=== PATIENT | male | born 1995 | race American Indian/Alaskan Native ===

== ENCOUNTER 2017-12-31 14:00 | Emergency (ER) | payer OTHER ==
[2017-12-31 14:11] VITALS: BMI 22.2
[2017-12-31 14:16] VITALS: RESP 18; TEMP 98.2
[2017-12-31] MEDS ORDERED: Morphine 4 mg/ml ISec IVP STA (14:31)
[2017-12-31] MEDS ORDERED: Sodium Chloride 0.9% 1,000 ML IV STA (14:47)
[2017-12-31] MEDS ORDERED: Iohexol 240 (50 ml) ONE (14:52)
--- NOTE | 2017-12-31 14:54 | ED PDOC ---
Arrival/HPI - General Chief Complaint: Abdominal Pain Time Seen by Provider: 12/31/17 14:21 Historian: Patient, Partner EM Caveat: Acuity of Condition - History of Present Illness Narrative History of Present Illness (Text): 12/31/17 14:48 Pt is a 22 yo AA M BIB girlfriend for acute epigastric abdominal pain x 6 hrs. Pt reports that he had over 14 spicy hot wings last night along with a slurpee and a small amount of wine before he went to bed. Pt states when he woke up today, he had severe abdominal pain along with nausea but denies cp, vomiting, diarrhea, shortness of breath, back pain or fever. Girlfriend gave him pepto bismol tablets but spit them out in attempting to vomit. Pt is currently taking percocet for unknown condition. Reports a similar type of pain when he was very young and was diagnosed with gastroesophagitis. Last BM was the previous day. 12/31/17 15:01 Time/Duration: Prior to Arrival Symptom Onset: Gradual Symptom Course: Unchanged, Worsening Quality: Aching Severity Level: Moderate, Severe Activities at Onset: Rest, Eating, Sleeping Context: Home Past Medical History - Provider Review Nursing Documentation Reviewed: Yes - Travel History Have you recently traveled outside [place] w/in the past 3 mons?: No - Past History Past History: No Previous - Infectious Disease Hx of Infectious Diseases: None - Tetanus Immunization Tetanus Immunization: Unknown - Past Medical History Past Medical History: No Previous - Cardiac Hx Cardiac Disorders: No - Pulmonary Hx Respiratory Disorders: No - Neurological Hx Neurological Disorder: No - Endocrine/Metabolic Hx Endocrine Disorders: No - Hematological/Oncological Hx Blood Disorders: No - Integumentary Hx Dermatological Disorder: No - Musculoskeletal/Rheumatological Hx Musculoskeletal Disorders: No - Gastrointestinal Hx Gastrointestinal Disorders: No - Psychiatric Hx Substance Use: Yes - Past Surgical History Past Surgical History: No Previous - Anesthesia Hx Anesthesia: No Family/Social History - Physician Review Nursing Documentation Reviewed: Yes Family/Social History: Unknown Family HX Smoking Status: Heavy Smoker > 10 Cigarettes Daily Hx Alcohol Use: No Hx Substance Use: Yes Substance used: percocet Hx Substance Use Treatment: No Allergies/Home Meds Allergies/Adverse Reactions: Allergies No Known Allergies Allergy (Verified 03/01/14 13:02) Review of Systems - Review of Systems Constitutional: Normal Eyes: Normal ENT: Normal Respiratory: Normal Cardiovascular: Normal Gastrointestinal: Abdominal Pain (10/10 intractable pain), Nausea, Appetite Changes, Other (ate over 14 spicy hot wings last night before bed) Genitourinary Male: Normal Musculoskeletal: Normal Skin: Normal Neurological: Normal Endocrine: Normal Hemo/Lymphatic: Normal Psychiatric: Normal Physical Exam Vital Signs Reviewed: Yes Vital Signs Temp Pulse Resp BP Pulse Ox 12/31/17 18:47 72 18 118/66 98 12/31/17 14:13 98.2 F 69 18 105/41 L 96 Temperature: Afebrile Blood Pressure: Normal Pulse: Regular Respiratory Rate: Normal Appearance: Positive for: Well-Appearing, Non-Toxic, Comfortable Pain Distress: None Mental Status: Positive for: Alert and Oriented X 3 - Systems Exam Head: Present: Atraumatic, Normocephalic Pupils: Present: PERRL Extroacular Muscles: Present: EOMI Conjunctiva: Present: Normal Mouth: Present: Moist Mucous Membranes Neck: Present: Normal Range of Motion Respiratory/Chest: Present: Clear to Auscultation, Good Air Exchange. No: Respiratory Distress, Accessory Muscle Use Cardiovascular: Present: Regular Rate and Rhythm, Normal S1, S2. No: Murmurs Abdomen: Present: Tenderness, Normal Bowel Sounds, Rebound, Guarding, Rovsing's Sign Present, Other (Negative Read's). No: Distention, Peritoneal Signs Back: Present: Normal Inspection Upper Extremity: Present: Normal Inspection. No: Cyanosis, Edema Lower Extremity: Present: Normal Inspection, NORMAL PULSES. No: Edema Neurological: Present: GCS=15, CN II-XII Intact, Speech Normal Skin: Present: Warm, Dry, Normal Color. No: Rashes Psychiatric: Present: Alert, Oriented x 3, Normal Insight, Normal Concentration Medical Decision Making ED Course and Treatment: 12/31/17 14:54 Impression Pt is a 22 yo AA M BIB girlfriend for acute epigastric abdominal pain x 6 hrs. Plan morphine 2 mg for pain zofran and pantoprazole for nausea cbc, cmp, ua, lipase and lipid panel ecg CT w IV and po contrast Standing upright abdominal XR to R/O perforation IVF bolus 1L Progress Note: Pt remained NPO and was resting well in bed allthough still complains of pain CT abdomen and pelvis along with plain film upright is unremarkable Pt likely has gastritis and should follow up with GI specialist for EGD to rule out PUD Toradol injection prior to dispo Pantoprazole x 10 along with cafate VSS and patient ambulated out of ER Reassessment Condition: Improved - Lab Interpretations Lab Results: 12/31/17 15:00 12/31/17 15:00 Lab Results 12/31/17 18:36: Urine Color Yellow, Urine Appearance Clear, Urine pH 8.0, Ur Specific [place] 1.015, Urine Protein Negative, Urine Glucose (UA) Negative, Urine Ketones Trace H, Urine Blood Negative, Urine Nitrate Negative, Urine Bilirubin Negative, Urine Urobilinogen 0.2, Ur Leukocyte Esterase Negative 12/31/17 15:00: Sodium 145, Potassium 3.9, Chloride 103, Carbon Dioxide 28, Anion Gap 18, BUN 14, Creatinine 0.8, Est GFR ( Amer) > 60, Est GFR (Non- Af Amer) > 60, Random Glucose 109, Calcium 10.4, Total Bilirubin 0.3, AST 44, ALT 52, Alkaline Phosphatase 74, Total Protein 8.3, Albumin 4.5, Globulin 3.8, Albumin/Globulin Ratio 1.2, Triglycerides 80, Cholesterol 191, LDL Cholesterol Direct 108, HDL Cholesterol 49, Lipase 64 12/31/17 15:00: WBC 11.4 H, RBC 4.81, Hgb 13.7 L, Hct 40.8 L, MCV 84.8, MCH 28.5 , MCHC 33.6, RDW 12.8, Plt Count 348, MPV 9.3, Gran % 76.0 H, Lymph % (Auto) 17.0 L, [place] % (Auto) 6.2 H, Eos % (Auto) 0.6 L, Baso % (Auto) 0.2, Gran # 8.69 H, Lymph # (Auto) 1.9, [place] # (Auto) 0.7 H, Eos # (Auto) 0.1, Baso # (Auto) 0.02 I have reviewed the lab results: Yes - RAD Interpretation Narrative RAD Interpretations (Text): 01/01/18 13:12 CT and upright XR unremarkable; no acute findings related to clinical presentation; constipation noted w/o fecal impaction or obstruction; no signs of acute colitis Radiology Orders: 12/31/17 14:37 ABDOMEN & PELVIS [ABD PELVIS PO & IV CONTRAST] [CT] Stat 12/31/17 14:46 ERECT ABD 1 VIEW (PERF) [RAD] Stat [employer] Technician: Radiologist - EKG Interpretation EKG Interpretation (Text): 12/31/17 19:09 Pt was given morphine 2 mg STAT for pain control, then ecg was done Interpreted by ED Physician: Yes (Sinus sweta w sinus arrhythmia Rate 57) - Medication Orders Current Medication Orders: Discontinued Medications Sodium Chloride (Sodium Chloride 0.9%) 1,000 mls @ 999 mls/hr IV .Q1H1M STA Stop: 12/31/17 15:47 Last Admin: 12/31/17 15:18 Dose: 999 mls/hr eMAR Start Stop Document 12/31/17 15:18 HI (Rec: 12/31/17 15:18 HI [id number]) Intravenous Solution Start Date 12/31/17 Start Time 15:18 Ketorolac Tromethamine (Toradol) 30 mg IVP STAT STA Stop: 12/31/17 18:15 Last Admin: 12/31/17 18:35 Dose: 30 mg MAR Pain Assessment Document 12/31/17 18:35 HI (Rec: 12/31/17 18:35 HI [id number]) Pain Reassessment Is this a pain reassessment? No Sleep Is patient sleeping during reassessment? No Presence of Pain Presence of Pain Yes IVP Administration Document 12/31/17 18:35 HI (Rec: 12/31/17 18:35 HI [id number]) Charges for Administration # of IVP Administrations 1 Morphine Sulfate (Morphine) 4 mg IVP STAT STA Stop: 12/31/17 14:32 Last Admin: 12/31/17 14:59 Dose: 4 mg MAR Pain Assessment Document 12/31/17 14:59 HI (Rec: 12/31/17 15:18 HI [id number]) Pain Reassessment Is this a pain reassessment? No Presence of Pain Presence of Pain Yes Location Pain Location Body Site Abdomen Description Pain Behavior Restlessness Facial Grimacing Thrashing Alleviating Factors/Management Medication Techniques IVP Administration Document 12/31/17 14:59 HI (Rec: 12/31/17 15:18 HI [id number]) Charges for Administration # of IVP Administrations 1 Re-Assess: [place] Pain Assessment Document 12/31/17 15:59 HI (Rec: 12/31/17 17:03 HI [id number]) Pain Reassessment Is this a pain reassessment? Yes Sleep Is patient sleeping during reassessment? No Presence of Pain Presence of Pain Yes Pain Scale Used Pain Scale Used Numeric Ondansetron HCl (Zofran Inj) 4 mg IVP STAT STA Stop: 12/31/17 14:32 Last Admin: 12/31/17 14:59 Dose: 4 mg IVP Administration Document 12/31/17 14:59 HI (Rec: 12/31/17 15:18 [id number] Charges for Administration # of IVP Administrations 1 Pantoprazole Sodium (Protonix Inj) 40 mg IVP STAT STA Stop: 12/31/17 14:48 Last Admin: 12/31/17 15:18 Dose: 40 mg IVP Administration Document 12/31/17 15:18 HI (Rec: 12/31/17 15:18 [id number]) Charges for Administration # of IVP Administrations 1 Disposition/Present on Arrival - Present on Arrival Any Indicators Present on Arrival: Yes History of DVT/PE: No History of Uncontrolled Diabetes: No Urinary Catheter: No History of Decub. Ulcer: No History Surgical Site Infection Following: None - Disposition Have Diagnosis and Disposition been Completed?: Yes Diagnosis: Gastritis Disposition: HOME/ ROUTINE Disposition Time: 18:27 Patient Plan: Discharge Condition: STABLE Discharge Instructions (ExitCare): Sucralfate (By mouth), Acetaminophen (By mouth), Omeprazole (By mouth) Additional Instructions: Dear Patient, Please follow up with your primary doctor for a referral to a GI specialist as you will probably need an upper endoscopic examination to ascertain a gastric or duodenal ulcer. Please follow the instructions for taking your medication properly Avoid spicy and fried foods. Should you have any fever, chills, severe stomach pain or other alarming symptoms, return to the emergency department for evaluation. All the best in your recovery. Prescriptions: Acetaminophen [Tylenol Arthritis] 650 mg PO Q6 10 Days #40 tablet.er Omeprazole 20 mg PO DAILY 10 Days #10 capsule.dr Sucralfate [Carafate] 1 gm PO TID 10 Days #30 oral.susp Referrals: David Mensah MD [Primary Care Provider] - Follow up with primary Forms: [employer] (French)
[2017-12-31 15:17] LABS: BASO # 0.02 K/mm3 (0.0-2.0); BASO % 0.2 % (0.0-3.0); EOS # 0.1 (0.0-0.7); EOS % 0.6 % (1.5-5.0); GRAN # 8.69 (1.4-6.5); HEMOGLOBIN 13.7 g/dL (14.0-18.0); LYMPH # 1.9 (1.2-3.4); MEAN CELL VOLUME 84.8 fl (80.0-105.0); MEAN CORPUSCULAR HEMOGLOBIN 28.5 pg (25.0-35.0); MEAN CORPUSCULAR HGB CONC 33.6 g/dl (31.0-37.0); MEAN PLATELET VOLUME 9.3 fl (7.0-11.0); MONO # 0.7 (0.1-0.6); MONO % 6.2 % (1.0-6.0); RBC 4.81 10^6/uL (3.5-6.1); RED CELL DISTRIBUTION WIDTH 12.8 % (11.5-14.5); WHITE BLOOD COUNT 11.4 10^3/ul (4.5-11.0)
[2017-12-31 15:32] LABS: ALB/GLOB RATIO 1.2 (1.1-1.8); ALBUMIN 4.5 g/dL (3.0-4.8); ALT/SGPT 52 U/L (7-56); AST/SGOT 44 U/L (17-59); BLOOD UREA NITROGEN 14 mg/dL (7-21); CALCIUM 10.4 mg/dL (8.4-10.5); GFR AFRICAN-AMERICAN > 60; GFR NON-AFRICAN AMERICAN > 60; HDL CHOLESTEROL 49 mg/dL (29-60); LIPASE 64 U/L (23-300)
[2017-12-31 15:43] LABS: LDL CHOLESTEROL 108 mg/dL (0-129)
[2017-12-31] MEDS ORDERED: Iohexol 350 MG/100 ML VIAL ONE (16:45)
--- NOTE | 2017-12-31 17:43 | CT ---
PROCEDURE: CT Abdomen and Pelvis with contrast HISTORY: Epigastric/stomach pain. COMPARISON: None. TECHNIQUE: Contrast dose: 100 cc Omnipaque 350. Radiation dose: Total exam DLP = to a 3.22 mGy-cm. This CT exam was performed using one or more of the following dose reduction techniques: Automated exposure control, adjustment of the mA and/or kV according to patient size, and/or use of iterative reconstruction technique. FINDINGS: LOWER THORAX: Unremarkable. LIVER: Unremarkable. No gross lesion or ductal dilatation. GALLBLADDER AND BILE DUCTS: Unremarkable. PANCREAS: Unremarkable. No gross lesion or ductal dilatation. SPLEEN: Unremarkable. ADRENALS: Unremarkable. No mass. KIDNEYS AND URETERS: Unremarkable. No hydronephrosis. No solid mass. VASCULATURE: Unremarkable. No aortic aneurysm. BOWEL: Constipation without fecal impaction or obstruction. Under filling of the low left hemicolon accentuates thickening of the bowel wall. There are no secondary/indirect signs of acute colitis. APPENDIX: Normal appendix. PERITONEUM: Unremarkable. No free fluid. No free air. LYMPH NODES: Unremarkable. No enlarged lymph nodes. BLADDER: Unremarkable. REPRODUCTIVE: Unremarkable. BONES: No acute fracture. OTHER FINDINGS: None. IMPRESSION: No acute findings related to/accounting for the clinical presentation. Additional benign and/or incidental findings described above.
[2017-12-31 18:48] VITALS: BP 118/66; PULSE 72; O2SAT 98
[2017-12-31 18:52] LABS: URINE BILIRUBIN NEGATIVE (NEGATIVE); URINE BLOOD NEGATIVE (NEGATIVE); URINE GLUCOSE (UA) NEGATIVE (NEGATIVE); URINE LEUKOCYTE ESTERASE NEGATIVE Leu/uL (NEGATIVE); URINE NITRATE NEGATIVE (NEGATIVE); URINE PROTEIN NEGATIVE mg/dL (<30 mg/dL); URINE UROBILINOGEN 0.2 E.U./dL (<1 E.U./dL)
[2017-12-31 18:54] LABS: URINE APPEARANCE CLEAR (CLEAR); URINE COLOR YELLOW (YELLOW)
--- NOTE | 2018-01-01 11:18 | RAD ---
Erect abdominal one view abdomen radiograph Indication: Epigastric pain, left decubitus Comparison: CT of the abdomen and pelvis with IV contrast performed 12/31/17 Findings: Residual contrast noted within renal collecting system. No definite free air. Non specific bowel gas pattern. No definite free air. Moderate constipation. Impression: Moderate constipation.
--- NOTE | 2018-01-01 16:19 | CARD ---
APPROVED REPORT EKG Measurement Heart [id number] <Conclusion> Sinus bradycardia with sinus arrhythmia Otherwise normal ECG
== END 2017-12-31 19:42 | disposition home or self-care (01) ==
LOC: ED 14:00
DX: K29.70 Gastritis, unspecified, without bleeding (principal); F17.210 Nicotine dependence, cigarettes, uncomplicated
CPT/HCPCS: 74018; 74177; 80053; 80061; 81003; 83690; 85025; 93005; 96374; 96375; 99283; C9113; J1885; J2270; J2405; J7040; Q9966; Q9967